=== PATIENT | female | born 1970 | race African-American/Black ===

== ENCOUNTER → 2017-03-16 | Outpatient (CLI) | payer OTHER ==
[~2017-03-16] MED LIST: HYDR-3965 PO; NO MEDS
== END | disposition home or self-care (01) ==
LOC: LABPV 08:46
PROVIDERS: ATTEND Family Medicine
DX: E78.5 Hyperlipidemia, unspecified (principal)
CPT/HCPCS: 83721

== ENCOUNTER → 2017-03-25 | Outpatient (CLI) | payer OTHER ==
[2017-03-31 02:44] LABS: ALLERGEN A. FUMIGATUS <0.10 kU/L (Class 0); ALLERGEN ALTERNARIA ALTERNATA <0.10 kU/L (Class 0); ALLERGEN BAHIA GRASS <0.10 kU/L (Class 0); ALLERGEN BERMUDA GRASS <0.10 kU/L (Class 0); ALLERGEN BROME SMOOTH GRASS <0.10 kU/L (Class 0); ALLERGEN CAT HAIR/DANDER <0.10 kU/L (Class 0); ALLERGEN CLADOSPORIUM HERBARUM <0.10 kU/L (Class 0); ALLERGEN COMMON SILVER BIRCH <0.10 kU/L (Class 0); ALLERGEN D. PTERNYSSINUS <0.10 kU/L (Class 0); ALLERGEN D.FARINAE(MITE) <0.10 kU/L (Class 0); ALLERGEN DOG HAIR/DANDER <0.10 kU/L (Class 0); ALLERGEN EUCALYPTUS TREE <0.10 kU/L (Class 0); ALLERGEN LENSCALE <0.10 kU/L (Class 0); ALLERGEN MIMOSA/ACACIA TREE <0.10 kU/L (Class 0); ALLERGEN NETTLE <0.10 kU/L (Class 0); ALLERGEN OLIVE TREE <0.10 kU/L (Class 0); ALLERGEN PECAN HICKORY TREE <0.10 kU/L (Class 0); ALLERGEN PENICILLIUM CHRYSOGEN <0.10 kU/L (Class 0); ALLERGEN RUSSIAN THISTLE <0.10 kU/L (Class 0); ALLERGEN RYE PERENNIAL <0.10 kU/L (Class 0); ALLERGEN STEMPHYLIUM HERBARUM <0.10 kU/L (Class 0); ALLERGEN WALNUT (TREE) <0.10 kU/L (Class 0); ALLERGEN WHITE MULBERRY TREE <0.10 kU/L (Class 0); ALLERGEN WHITE OAK TREE <0.10 kU/L (Class 0); ALLERGEN WORMWOOD/SAGEBRUSH <0.10 kU/L (Class 0)
== END | disposition home or self-care (01) ==
LOC: LABPV 11:29
PROVIDERS: ATTEND Family Medicine
DX: J30.9 Allergic rhinitis, unspecified (principal); L50.9 Urticaria, unspecified
CPT/HCPCS: 86003

== ENCOUNTER 2018-01-14 04:12 | Emergency (ER) | payer OTHER ==
[~2018-01-14] VITALS: Ht 160 cm; Wt 68.2 kg
[2018-01-14] MEDS ORDERED: MONT10TA21 PO (04:16)
[2018-01-14 05:30] VITALS: BP 125/74
== END 2018-01-14 05:52 | disposition home or self-care (01) ==
LOC: EMS 04:13
DX: S46.912A Strain of unspecified muscle, fascia and tendon at shoulder and upper arm level, left arm, initial encounter (principal); Z88.0 Allergy status to penicillin; X58.XXXA Exposure to other specified factors, initial encounter; Y93.89 Activity, other specified; Y92.89 Other specified places as the place of occurrence of the external cause; Y99.8 Other external cause status
CPT/HCPCS: 99284